=== PATIENT | male | born 1960 | race Caucasian/White ===

== ENCOUNTER 2018-03-19 18:38 | Observation (INO) ==
--- NOTE | 2018-03-19 18:51 | Emergency Department Note ---
Disposition Clinical Impression: Appendicitis Qualifiers: Appendicitis type: acute appendicitis Acute appendicitis type: unspecified acute appendicitis type Qualified Code(s): K35.80 - Unspecified acute appendicitis Disposition: Admitted As Inpatient Condition: Good Abdominal Pain HPI - General Chief Complaint: ED Abdominal Pain Stated Complaint: Sent by Shahla Kennedy bad Time Seen by Provider: 03/19/18 18:43 Source: patient Mode of arrival: ambulatory Limitations: no limitations Nursing Notes Reviewed: Yes Vital Signs Reviewed: Yes - History of Present Illness HPI Narrative: Patient presents today for evaluation and concern for acute appendicitis. Patient had pain that started yesterday and progressed throughout today. The patient has tenderness to the right lower quadrant. Was seen outpatient by Dr. Marley. Had a CBC and a CT scan performed. CBC has an elevated white count at 17. The patient has a CAT scan that shows appendicitis with a dilated appendix as well as an appendicolith and periappendiceal fat. He did eat at 5:00 PM prior to arrival. The patient's has not had fevers chills or other systemic symptoms. A call will be placed to the surgeon. A chemistry and INR have been obtained for pre-surgical clearance. Pain Scale: 5 - Related Data Allergies Allergy/AdvReac Type Severity Reaction Status Date / Time No Known Allergies Allergy Verified 03/19/18 18:42 All systems ED: reviewed and negative except as stated. Constitutional: Denies: fever, chills Cardiovascular: Denies: chest pain Respiratory: Denies: cough, dyspnea Gastrointestinal: Reports: abdominal pain, nausea. Denies: vomiting Musculoskeletal: Denies: back pain Integumentary: Denies: rash, abrasion Physical Exam General: Well appearing, nontoxic, no acute distress Head: Normocephalic Atraumatic ENT: Airway patent, no stridor Neck: supple Chest: Lungs clear to auscultation bilateral Cardiac: Regular rate and rhythm, no murmurs, rubs or gallops Abdomen: soft, tenderness to palpation in the right lower quadrant with rebound tenderness. Rosving sign negative. Musculoskeletal: Calves symmetric, nontender Skin: No rash, normal skin tone Neuro: Awake alert and appropriate, conversational. Course - Consultations Consultation #1: Discussed with Dr. Fernandez. Patient will be evaluated in the emergency department. Vital Signs Temperature 99.8 F H 03/19/18 18:40 Pulse Rate 81 03/19/18 18:40 Respiratory Rate 16 03/19/18 18:40 Blood Pressure 170/100 03/19/18 18:40 O2 Sat by Pulse Oximetry 96 03/19/18 18:40 Temperature 99.8 F H 03/19/18 18:40 Pulse Rate 81 03/19/18 18:40 Respiratory Rate 16 03/19/18 18:40 Blood Pressure 170/100 03/19/18 18:40 O2 Sat by Pulse Oximetry 96 03/19/18 18:40 Oxygen Delivery Oxygen Delivery Room Air
[2018-03-19] MEDS ORDERED: Piperacillin/Tazobactam 3.375 GM in 0.9 % Sodium Chloride Mini Bag 100 ML IVPB ONE (18:52)
[2018-03-19 19:16] LABS: INR 1.2; Prothrombin Time 13.5 Seconds (9.4-12.1)
[2018-03-19 19:33] LABS: Alanine Aminotransferase 34 Units/L (7-52); Albumin 4.6 g/dL (3.5-5.7); Alkaline Phosphatase 75 Units/L (34-104); Aspartate Amino Transferase 22 Units/L (13-39); BUN/Creatinine Ratio 19 (6-26); Bilirubin,Total 1.3 mg/dL (0.3-1.0); Blood Urea Nitrogen 18 mg/dL (6-20); Calcium 9.7 mg/dL (8.6-10.3); Carbon Dioxide 24 mEq/L (23-29); Chloride 102 mEq/L (98-107); Globulin 2.3 g/dL (2.4-3.5); Glucose 138 mg/dL (70-105); Osmolality,Calculated 280 (280-300); Potassium 3.7 mEq/L (3.5-5.1); Sodium 133 mEq/L (136-145); Total Protein 6.9 g/dL (6.4-8.9); eGFR For Non-African Americans > 60 (> 60)
--- NOTE | 2018-03-19 19:37 | General Surg History&Physical ---
Date of Encounter: 03/19/18 Time of Encounter: 19:35 Assessment and Plan (1) Acute appendicitis Current Visit: Yes Status: Acute The assessment and plan as outlined above was discussed with the patient and/or family members who expressed understanding and agreement. All questions were answered. I explained to the patient that I personally reviewed the CT scan images and report showing acute appendicitis. We will proceed with a laparoscopic appendectomy. Risks and benefits discussed with the patient and he agrees to the above plan. Qualifiers: Acute appendicitis type: with localized peritonitis Qualified Code(s): K35.3 - Acute appendicitis with localized peritonitis History of Present Illness Chief complaint: Right lower abdominal pain HPI: Mr. Newton is a 57 year old male with a past medical history significant for hypertension states that yesterday evening he had the onset of severe and constant right lower quadrant abdominal pain. He states that he did have nausea yesterday but has not had any nausea currently. The pain was sharp stabbing and nonradiating and continued until today. He presented himself to the emergency room for further evaluation. He denies any diarrhea but does admit to some loose stool yesterday. He normally has a bowel movement once per day. Past Med Surg Social Fam HX - Past Medical History Medical history: hypertension Psychiatric history: no psych history - Social History Smoking Status: Never smoker Alcohol use: occasionally Drug use: none Medications and Allergies 3 Allergy/AdvReac Type Severity Reaction Status Date / Time No Known Allergies Allergy Verified 03/19/18 18:42 Review of Systems All systems PM: reviewed and no additional remarkable complaints except as stated All systems PM: The remainder of the systems were reviewed and are negative General Surgery Exam Initial Vital Signs Temp Pulse Resp BP Pulse Ox 99.8 F H 81 16 170/100 96 03/19/18 18:40 03/19/18 18:40 03/19/18 18:40 03/19/18 18:40 03/19/18 18:40 - General physical appearance well developed, well nourished, no distress - Eyes PERRL, normal ocular movement - Respiratory normal expansion, normal respiratory effort, clear to auscultation - Cardiovascular Cardiovascular exam: Present: RRR, no murmurs/rubs/gallops - Abdomen Abdomen general surgery: Present: bowel sounds present, soft (Obese), tender ( Right lower abdominal pain) - Neurologic Present: normal coordination, normal sensation - Musculoskeletal Present: other (No clubbing cyanosis or edema) - Psychiatric Psychiatric general surgery: Present: A&Ox3 Results - Labs 03/19/18 18:52 Abnormal lab results PT 13.5 Seconds (9.4-12.1) H 03/19/18 18:52 Sodium 133 mEq/L (136-145) L 03/19/18 18:52 Glucose 138 mg/dL (70-105) H 03/19/18 18:52 Total Bilirubin 1.3 mg/dL (0.3-1.0) H 03/19/18 18:52 Globulin 2.3 g/dL (2.4-3.5) L 03/19/18 18:52 Diabetes panel 03/19/18 Range/Units 18:52 Sodium 133 L (136-145) mEq/L Potassium 3.7 (3.5-5.1) mEq/L Chloride 102 (98-107) mEq/L Carbon Dioxide 24 (23-29) mEq/L BUN 18 (6-20) mg/dL Creatinine 0.93 (0.70-1.30) mg/dL Glucose 138 H (70-105) mg/dL Calcium 9.7 (8.6-10.3) mg/dL AST 22 (13-39) Units/L ALT 34 (7-52) Units/L Alkaline Phosphatase 75 (34-104) Units/L Albumin 4.6 (3.5-5.7) g/dL Calcium panel 03/19/18 Range/Units 18:52 Calcium 9.7 (8.6-10.3) mg/dL Albumin 4.6 (3.5-5.7) g/dL Pituitary panel 03/19/18 Range/Units 18:52 Sodium 133 L (136-145) mEq/L Potassium 3.7 (3.5-5.1) mEq/L Chloride 102 (98-107) mEq/L Carbon Dioxide 24 (23-29) mEq/L BUN 18 (6-20) mg/dL Creatinine 0.93 (0.70-1.30) mg/dL Glucose 138 H (70-105) mg/dL Calcium 9.7 (8.6-10.3) mg/dL Adrenal panel 03/19/18 Range/Units 18:52 Sodium 133 L (136-145) mEq/L Potassium 3.7 (3.5-5.1) mEq/L Chloride 102 (98-107) mEq/L Carbon Dioxide 24 (23-29) mEq/L BUN 18 (6-20) mg/dL Creatinine 0.93 (0.70-1.30) mg/dL Glucose 138 H (70-105) mg/dL Calcium 9.7 (8.6-10.3) mg/dL Total Bilirubin 1.3 H (0.3-1.0) mg/dL AST 22 (13-39) Units/L ALT 34 (7-52) Units/L Alkaline Phosphatase 75 (34-104) Units/L Albumin 4.6 (3.5-5.7) g/dL All other labs normal. - Imaging CT scan - abdomen: report reviewed, image reviewed (Noted inflammation around the appendix which is also enlarged consistent with acute appendicitis)
[2018-03-19] MEDS ORDERED: Lidocaine -MPF 4% 5 ML AMPUL ONE (20:08)
[2018-03-19] MEDS ORDERED: *HR* Midazolam HCl 2 MG/2 ML VIAL ONE (20:08)
[2018-03-19] MEDS ORDERED: *HR* Succinylcholine 200 MG/10 ML VIAL IVP ONE (20:08)
[2018-03-19] MEDS ORDERED: *HR* FentaNYL (PF) 100 MCG/2 ML VIAL ONE ×2 (20:08→21:00)
[2018-03-19] MEDS ORDERED: Lidocaine -MPF 2% 2 ML VIAL ONE (20:08)
[2018-03-19] MEDS ORDERED: *HR* Magnesium Sulfate 1 GM/2 ML VIAL ONE (20:09)
[2018-03-19] MEDS ORDERED: Ketorolac 30 MG/ML VIAL ONE (20:09)
[2018-03-19] MEDS ORDERED: *HR* Propofol 200 MG/20 ML VIAL IVP ONE (20:09)
[2018-03-19] MEDS ORDERED: Ondansetron 4 MG/2 ML VIAL ONE (20:09)
[2018-03-19] MEDS ORDERED: Dexamethasone 4 MG/ML VIAL ONE (20:09)
[2018-03-19] MEDS ORDERED: Metoclopramide 10 MG/2 ML VIAL ONE (20:16)
[2018-03-19] MEDS ORDERED: Famotidine 20 MG/2 ML VIAL ONE (20:16)
[2018-03-19] MEDS ORDERED: Acetaminophen IV 1,000 MG/100 ML INFUS..BTL ONE (20:16)
--- NOTE | 2018-03-19 20:20 | Anesthesia Evaluation PreOp ---
Date of Encounter: 03/19/18 Time of Encounter: 20:18 - Past History Planned Operation: Lap Appy Cardiac History: HTN Pulmonary History: Denies Any Significant HX THREAD SPOOLER History: Denies Any Significant HX Other Medical History: Denies Any Significant HX Anesthesia History: No Prior Anesthetic Complications, Past Anesthesia Alcohol Use: occasionally Drug use: none Medications and Allergies Aspirin Enteric Coated [Aspirin EC] 81 mg PO DAILY 03/19/18 [History] Atenolol [Tenormin] 50 mg PO DAILY 03/19/18 [History] 3 Allergy/AdvReac Type Severity Reaction Status Date / Time No Known Allergies Allergy Verified 03/19/18 18:42 - Meds/Allergy Pre-op Review Medications Reviewed: Yes Allergies Reviewed: Yes Beta Blockers on Current Med List: Yes (Atenolol) If Beta Blockers taken, Date/Time (Last Dose taken): 03/19/2018 @ Anesthesia Results - Labs 03/19/18 18:52 Laboratory Results PT 13.5 Seconds (9.4-12.1) H 03/19/18 18:52 INR 1.2 03/19/18 18:52 Sodium 133 mEq/L (136-145) L 03/19/18 18:52 Potassium 3.7 mEq/L (3.5-5.1) 03/19/18 18:52 Chloride 102 mEq/L (98-107) 03/19/18 18:52 Carbon Dioxide 24 mEq/L (23-29) 03/19/18 18:52 BUN 18 mg/dL (6-20) 03/19/18 18:52 Creatinine 0.93 mg/dL (0.70-1.30) 03/19/18 18:52 Est GFR ( Amer) > 60 (> 60) 03/19/18 18:52 Est GFR (Non-Af Amer) > 60 (> 60) 03/19/18 18:52 BUN/Creatinine Ratio 19 (6-26) 03/19/18 18:52 Glucose 138 mg/dL (70-105) H 03/19/18 18:52 Calculated Osmolality 280 (280-300) 03/19/18 18:52 Calcium 9.7 mg/dL (8.6-10.3) 03/19/18 18:52 Total Bilirubin 1.3 mg/dL (0.3-1.0) H 03/19/18 18:52 AST 22 Units/L (13-39) 03/19/18 18:52 ALT 34 Units/L (7-52) 03/19/18 18:52 Alkaline Phosphatase 75 Units/L (34-104) 03/19/18 18:52 Serum Total Protein 6.9 g/dL (6.4-8.9) 03/19/18 18:52 Albumin 4.6 g/dL (3.5-5.7) 03/19/18 18:52 Globulin 2.3 g/dL (2.4-3.5) L 03/19/18 18:52 Albumin/Globulin Ratio 2.0 (1.1-2.2) 03/19/18 18:52 Laboratory Tests 03/19/18 03/19/18 15:21 18:52 WBC 17.6 H Hgb 15.7 Hct 45.6 Plt Count 217 Anesthesia Exam Vital Signs Temp Pulse Resp BP Pulse Ox 03/19/18 20:01 75 15 161/98 97 03/19/18 19:17 99.8 F H 81 16 170/100 96 03/19/18 18:40 99.8 F H 81 16 170/100 96 Intake and Output 03/19/18 03/19/18 03/19/18 07:59 15:59 23:59 Other: Weight 109.134 kg Patient Weight 03/19/18 23:59 Weight 109.134 kg Height: 5'11" Weight: 240# BMI = 34 NPO (# of Hours): 2hrs - HEENT Pupil (Motor): Pupils equal, EOMI Mallampati: III Teeth: Normal Oral Opening: Greater than 3 - THREAD SPOOLER LOC: Oriented THREAD SPOOLER Motor: Normal RUE, Normal LUE, Normal RLE, Normal LLE, Normal Face THREAD SPOOLER Sensory: Normal: RUE, LUE, RLE, LLE, Face - Cardiac Rhythm: Regular Murmur: None - Pulmonary Breath Sounds: bilateral Clear Respiratory Effort: Symmetrical Anesthesia Assess/Plan ASA Score: 2 (HTN, Obesity, Acute Appendicitis), E Modified Yesi Scale for Level of Consciousness: Cooperative, oriented, and tranquil Anesthetic Plan: General Monitoring Plan: Standard Monitors Recovery Plan: PACU Anes Supervising Prov Stmt: Pt seen/evaluated, R&B Discussed, questions answered and consent obtained. Huma Alfaro MD
--- NOTE | 2018-03-19 21:30 | Operative Note ---
Date of procedure: 03/19/18 Pre-op diagnosis: acute appendicitis Post-op diagnosis: same Procedure: Laparoscopic appendectomy Anesthesia: GETA Surgeon: Jules Fernandez Was there an senior office support assistant sosa present: No Estimated blood loss (cc): 10 Specimen: appendix Condition: stable Disposition: PACU Procedure in Detail: Date of surgery: 03/19/18 After properly identification, the patient was brought to the operating room and placed in a supine position. After proper IV sedation was achieved followed by general endotracheal intubation, the patient's abdomen was prepped and draped in normal sterile fashion. A timeout was performed noting the patient's name and type of procedure to be performed. A super umbilical incision with an 11 blade scalpel was made down to the level the rectus fascia. The rectus fascia was incised and the abdomen was entered a 12 mm port was placed to the incision and the abdomen was insufflated with carbon dioxide. A laparoscopic camera was placed through the port which showed no injury to the intra-abdominal organs upon entry. A suprapubic 5 mm port and a left lower quadrant 5 mm port were then placed under direct camera visualization. The patient was placed in a Trendelenburg position with the left side tilted downwards. The right lower quadrant was examined and the appendix appeared to be thickened with mild fibrinous exudate consistent with acute appendicitis. Bovie cauterization was used to dissect the lateral sidewall attachments free and the appendix was retracted superiorly. Dissection was performed between the base of the appendix and the mesentery of the appendix with Bovie cauterization. A RICARDO stapler was then used to transect across the base of the appendix and the mesentery followed by removal of the appendix via an Endobag. Reinspection of the right lower quadrant demonstrated maintenance of hemostasis and the right lower quadrant and pelvis were irrigated with normal saline solution. Reinspection of the staple line verified hemostasis and all ports were then removed from the abdomen after the abdomen was desufflated. The rectus fascia for the supraumbilical incision was reapproximated with a [id number] 0 Vicryl suture. The subcutaneous tissue was reapproximated with a 3-0 Vicryl suture and the epidermal and dermal layers for the remaining incisions were closed with 4-0 Monocryl sutures. Needle, sponge, and instrument counts were correct 2 and the incisions were covered with Steri- Strips and Band-Aids. The patient was aroused from IV sedation, extubated in the operating room without complication, and transported to the recovery room in stable condition.
[2018-03-19] MEDS ORDERED: MORPHINE SUL Oral CONC 10 MG/0.5 ML ORAL.SYG SL PRN (23:00)
[2018-03-19] MEDS ORDERED: Ondansetron 4 MG/2 ML VIAL IVP PRN (23:00)
[2018-03-19] MEDS ORDERED: *HR* OxyCODONE/APAP 7.5/325 TABLET PO PRN (23:00)
[2018-03-20] MEDS: Ketorolac 30 MG/ML VIAL IVP SCH ×3 (00:14→12:39)
[2018-03-20] MEDS: Piperacillin/Tazobactam 3.375 GM in 0.9 % Sodium Chloride Mini Bag 100 ML IVPB SCH ×2 (01:53→09:05)
[2018-03-20] MEDS: 0.9 % Sodium Chloride 1,000 ML IVC SCH ×2 (02:31→12:40)
[2018-03-20] MEDS ORDERED: *HR* Heparin 5,000 UNIT/ML VIAL SQ SCH (06:00)
[2018-03-20 06:02] LABS: Basophils % 0.1 %; Hematocrit 43.9 % (37.5-50.1); Hemoglobin 14.8 g/dL (12.9-16.9); Immature Granulocytes % 0.4 % (0-4); Lymphocytes # 1.1 K/mcL (0.6-4.6); Lymphocytes % 7.2 %; Mean Corpuscular HGB Conc 33.7 g/dL (31.6-35.5); Mean Corpuscular Hemoglobin 28.5 pg (28.0-33.3); Mean Corpuscular Volume 84.6 fL (83.0-100.0); Mean Platelet Volume 9.7 fL (9.4-12.4); Monocytes # 0.7 K/mcL (0.0-1.3); Monocytes % 4.5 %; Neutrophils # 13.4 K/mcL (1.6-8.9); Platelet Count 203 K/mcL (140-400); Red Blood Count 5.19 M/mcL (4.19-5.50); Red Cell Distribution Width 12.5 % (11.5-14.5); Segmented Neutrophils % 87.8 %
[2018-03-20 06:20] LABS: BUN/Creatinine Ratio 22 (6-26); Blood Urea Nitrogen 18 mg/dL (6-20); Calcium 9.1 mg/dL (8.6-10.3); Carbon Dioxide 23 mEq/L (23-29); Chloride 106 mEq/L (98-107); Glucose 146 mg/dL (70-105); Osmolality,Calculated 281 (280-300); Potassium 4.4 mEq/L (3.5-5.1); Sodium 133 mEq/L (136-145); eGFR For Non-African Americans > 60 (> 60)
[2018-03-20] MEDS ORDERED: Pantoprazole 40 MG VIAL IVP SCH (09:00)
--- NOTE | 2018-03-20 10:57 | Discharge Summary ---
Orders not resulted at time of discharge: Pending orders 03/19/18 21:24 Surgical Pathology [PTH] Routine Date of Encounter: 03/20/18 Time of Encounter: 11:09 - Discharge Diagnosis (1) Acute appendicitis Priority: Primary Status: Acute Qualifiers: Acute appendicitis type: with localized peritonitis Qualified Code(s): K35.3 - Acute appendicitis with localized peritonitis General Surgery Exam Initial Vital Signs Temp Pulse Resp BP Pulse Ox 99.8 F H 81 16 170/100 96 03/19/18 18:40 03/19/18 18:40 03/19/18 18:40 03/19/18 18:40 03/19/18 18:40 Vital Signs Temp Pulse Resp BP Pulse Ox 03/20/18 11:00 98.2 F 56 16 142/86 94 03/20/18 07:27 98.0 F 65 16 162/80 97 03/20/18 07:08 98.0 F 65 16 162/80 97 03/20/18 03:44 98.4 F 63 16 120/69 96 03/20/18 01:30 98.3 F 68 20 141/80 93 03/20/18 00:30 69 94 03/19/18 23:30 98.2 F 73 12 146/81 97 03/19/18 23:07 98.2 F 68 14 148/91 92 03/19/18 22:38 97.8 F 68 14 154/92 93 03/19/18 22:20 98.6 F 64 16 140/90 95 03/19/18 22:10 67 14 142/84 96 03/19/18 22:00 63 14 109/69 96 03/19/18 21:50 99.7 F H 60 16 119/71 95 03/19/18 20:01 75 15 161/98 97 03/19/18 19:17 99.8 F H 81 16 170/100 96 03/19/18 18:40 99.8 F H 81 16 170/100 96 Intake and Output 03/19/18 03/20/18 03/20/18 23:59 07:59 15:59 Intake Total 200 / 200 180 / 180 Output Total 450 / 450 Balance -10 / -10 -250 / -250 180 / 180 Intake: IV Fluids 200 / 200 Zosyn 3.375 GM In 0.9 % Sodium 200 / 200 Chloride (Mini-Bag +) 100 ML @ 25 mls/hr IVPB ONCE ONE Rx#: [id number] Oral 0 / 0 180 / 180 Output: Urine 450 / 450 Estimated Blood Loss Other: Meal Breakfast Percent of Meal Consumed 100% # Voids 1 Weight 109.134 kg 114.4 kg Patient Weight 03/20/18 23:59 Weight 114.4 kg VITAL SIGNS: Reviewed. See [facility] GENERAL: In no apparent distress. HEENT: Normocephalic, atraumatic, pupils are equal and reactive, extraocular motions intact, oropharynx is pink and moist, there is no neck adenopathy or JVD noted. CHEST/RESPIRATORY: The thorax is free from signs of trauma. Lung sounds: clear to auscultation, normal respiratory effort CARDIAC: Regular rate and rhythm. Normal S1 and S2, without murmurs, gallops, or rubs. VASCULAR: No Edema. 2+ peripheral pulses. ABDOMEN: S,NT, ABS INCISION: Surgical incision is clean, dry, and intact. There are no signs of cellulitis or infection noted. MUSCULOSKELETAL: Good range of motion of all major joints. Extremities without clubbing, cyanosis or edema. NEUROLOGIC EXAM: Alert and oriented x 3. Speech normal. Follows commands. PSYCHIATRIC: Mood normal. SKIN: No rash or lesions. - Hospital Course Hospital course: Mr. Newton is a 57 year old male who presented on 03/19/2018 with complaints of right lower quadrant pain. His imaging and assessment were consistent with acute appendicitis. He was taken to the operating room on 03/19/2018 where he underwent an uncomplicated laparoscopic appendectomy. He is ambulating avoiding without difficulty, tolerating a diet without nausea or vomiting, vital signs are stable, and he is afebrile. We will begin discharge planning to home with a follow-up in the office in approximately 2 weeks. He does not have light-duty available and will be discharged with an off work excuse until scene and follow-up. - Time Spent with Patient Total time spent providing and/or coordinating discharge services: - Discharge Medications Prescriptions: OxyCODONE/APAP 5/325 [Percocet 5/325 MG] 1 each PO Q6HR PRN 7 Days #28 tablet PRN Reason: moderate-severe pain Docusate Sodium [Colace] 100 mg PO BID #30 capsule Ibuprofen 800 mg PO Q8H PRN #60 tablet PRN Reason: Mild Pain Home Medications: Aspirin Enteric Coated [Aspirin EC] 81 mg PO DAILY 03/19/18 [History] Atenolol [Tenormin] 50 mg PO DAILY 03/19/18 [History] Docusate Sodium [Colace] 100 mg PO BID #30 capsule 03/20/18 [Rx] Ibuprofen 800 mg PO Q8H PRN #60 tablet 03/20/18 [Rx] OxyCODONE/APAP 5/325 [Percocet 5/325 MG] 1 each PO Q6HR PRN 7 Days #28 tablet [Rx] Allergies/Adverse Reactions: 3 Allergy/AdvReac Type Severity Reaction Status Date / Time No Known Allergies Allergy Verified 03/19/18 18:42 Date of admission: 03/19/18 19:56 Primary care physician: Jaspreet Colunga Discharging clinician: Audra Mantilla Anticipated date of discharge: 03/20/18 Labs on day of discharge: Labs from last 24 hours 03/20/18 03/20/18 05:42 05:42 WBC 15.3 H RBC 5.19 Hgb 14.8 Hct 43.9 MCV 84.6 MCH 28.5 MCHC 33.7 RDW 12.5 Plt Count 203 MPV 9.7 Immature Gran % 0.4 Seg Neutrophils % 87.8 Lymphocytes % 7.2 Monocytes % 4.5 Eosinophils % 0.0 Basophils % 0.1 Neutrophils # 13.4 H Lymphocytes # 1.1 Monocytes # 0.7 Eosinophils # 0.0 Basophils # 0.0 Sodium 133 L Potassium 4.4 Chloride 106 Carbon Dioxide 23 BUN 18 Creatinine 0.83 Est GFR ( Amer) > 60 Est GFR (Non-Af Amer) > 60 BUN/Creatinine Ratio 22 Glucose 146 H Calculated Osmolality 281 Calcium 9.1 - Patient Status Disposition: Home, Self-Care Condition: Good Functional capacity at discharge: independent ambulation Overall status at discharge: patient is progressing back to baseline - Discharge Instructions Instructions: Laparoscopic Appendectomy (DC) Follow Up With: Jaspreet Colunga DO [Primary Care Provider] - Jeanette Ambrosio MICROBIAL SPECIALIST [Advanced Practice Nurse] - 04/03/18 9:15 am Forms: Inpatient Work/School Release Additional Instructions: General Surgical Discharge Instructions 1. No pushing, pulling, or lifting greater than 15 lbs for 2-4 weeks (depending upon procedure). 2. You may shower beginning today, but no tub baths, soaking, or swimming for 2 weeks. 3. You may resume driving when you are off narcotics and are safe to react in a car. 4. Take ibuprofen every 8 hours for discomfort. If this does not relieve discomfort, you may take the as needed Percocet. Take narcotics as directed. Do not take more narcotics then directed and do not share your narcotics with any other person. Do not drink alcohol while on narcotics. 5. Take stool softeners (Colace) or a water based laxative (Miralax) while taking narcotics. You may hold for loose stools. 6. Report any fevers greater than 100.5F, increase abdominal discomfort, drainage that looks like pus, increased redness or pain at the surgical site, or any vomiting. 7. Report any pain in the calves, shortness of breath, or rapid heartbeat. 8. Follow-up in the office as directed. 9. If you were prescribed antibiotics, do not stop them without talking to your provider. - Diet and Activity Diet: advance to your usual diet
[2018-03-20 11:06] VITALS: BP 142/86
== END 2018-03-20 13:26 | disposition home or self-care (01) ==
LOC: EMEROOARM 18:38 → 3ANU 18:38
PROVIDERS: ADMIT Surgery; ATTEND Surgery